=== PATIENT | male | born 1985 | race Caucasian/White ===

== ENCOUNTER 2018-04-27 11:42 | Inpatient (IN) | payer SELFPAY ==
[2018-04-27] VITALS (20 sets, daily range): BP systolic 121–146; BP diastolic 64–95; PULSE 66–90; RESP 12–24; TEMP 36.7–37.1; O2SAT 97–100; BMI 23.2
--- NOTE | 2018-04-27 11:47 | DI.RAD.S_ITS ---
PROCEDURE: XR CHEST 1V INDICATIONS: short of breath TECHNIQUE: One view of the chest was acquired. COMPARISON: None. FINDINGS: Surgical changes and devices: None. Lungs and pleura: There is a moderate to large right pneumothorax. No mediastinal shift at this time. Mediastinum: Mediastinal contours appear normal. Heart size is normal. Bones and chest wall: No suspicious bony lesions. Overlying soft tissues appear unremarkable. IMPRESSION: Moderate to large right pneumothorax. No noticeable mediastinal shift at this time. The result was discussed with Dr. Cheney in ER on 04/27/2018 at 12:22 hours. Dictated by: Obdulio Osorio M.D. on 04/27/2018 at 12:21 Approved by: Obdulio Osorio M.D. on 04/27/2018 at 12:24
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
[2018-04-27] MEDS: ALBUTEROL/IPRATROPIUM 3 ML AMPUL INH (11:59)
--- NOTE | 2018-04-27 11:59 | RT ---
Breathing tx given by
[2018-04-27 12:00] LABS: Add Manual Diff / Slide Review NO; Basophils Percent Auto 0.6 % (0-2); Hematocrit 48.7 % (41-53); Hemoglobin 16.6 g/dL (13.5-17.5); Lymphocytes Percent Auto 30.6 % (25-40); Mean Corpuscular HGB Conc 34.2 % (30-36); Mean Corpuscular Hemoglobin 30.3 PG (26-34); Mean Corpuscular Volume 88.7 fL (80-100); Monocytes Percent Auto 9.4 % (3-14); Neutrophils Absolute Auto 6800 /uL (3000-5900); Neutrophils Percent Auto 57.4 % (50-75); Platelet Count 298 X10^3/uL (150-400); Red Blood Cell Count 5.49 X10^6/uL (4.5-5.9); Red Cell Distribution Width 13.1 % (11.6-14.8); White Blood Cell Count 11.8 X10^3/uL (4.5-11.0)
--- NOTE | 2018-04-27 12:04 | PC.NURSE ---
with respiratory treatment duo neb, started by dr sierra on arrival.
[2018-04-27 12:12] LABS: BUN Creatinine Ratio 16.7 (6-22); Blood Urea Nitrogen 15 mg/dL (9-20); Calcium 9.5 mg/dL (8.4-10.2); Carbon Dioxide 24 mmol/L (22-32); Chloride 102 mmol/L (98-107); Estimated Glomerular Filt Rate > 60.0 mL/min (>60); Glucose 132 mg/dL (70-100); HEMOLYSIS < 15 (0-50); Potassium 3.8 mmol/L (3.4-5.1); Sodium 143 mmol/L (137-145)
--- NOTE | 2018-04-27 12:48 | PC.NURSE ---
awake , with slurred speech.
[2018-04-27] MEDS: PROPOFOL 200 MG/20 ML VIAL IV (12:51)
--- NOTE | 2018-04-27 12:53 | PC.NURSE ---
inserting right chest tube by dr sierra, pt talking with slurred speech, skin warm dry pink
--- NOTE | 2018-04-27 12:55 | PC.NURSE ---
with breathing assist bagging.
--- NOTE | 2018-04-27 13:06 | PC.NURSE ---
pcxr post ct placement
[2018-04-27] MEDS: HYDROMORPHONE 1 MG INJ IV ×4 (13:09→20:34)
--- NOTE | 2018-04-27 13:10 | PC.NURSE ---
dilaudid 1 mg ivps rac, for pain relief.
--- NOTE | 2018-04-27 13:13 | DI.RAD.S_ITS ---
PROCEDURE: XR CHEST 1V INDICATIONS: chest tube placement TECHNIQUE: One view of the chest was acquired. COMPARISON: [facility], CR, XR CHEST 1V, 04/27/2018, 12:03. FINDINGS: Surgical changes and devices: There is a thoracostomy tube on the right. Lungs and pleura: A small residual right apical pneumothorax is present. No pleural effusions. Lungs are clear. Mediastinum: Mediastinal contours appear normal. Heart size is normal. Bones and chest wall: No suspicious bony lesions. Overlying soft tissues appear unremarkable. IMPRESSION: 1. Placement of thoracostomy on the right. There is a small residual right apical pneumothorax. Dictated by: Obdulio Osorio M.D. on 04/27/2018 at 13:25 Approved by: Obdulio Osorio M.D. on 04/27/2018 at 13:27
[2018-04-27] MEDS: SODIUM CHLORIDE 0.9% 100 ML IV (13:49)
--- NOTE | 2018-04-27 14:01 | PC.NURSE ---
diminished right lung , reported to dr sierra, no new orders at this time
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
[2018-04-27] MEDS: SODIUM CHLORIDE 0.9% 1,000 ML 42 ML IV (15:00)
--- NOTE | 2018-04-27 15:32 | PC.NURSE ---
Patient brought up from ER to room 202, with right midaxillary chest tube in place. Patient states his breathing has improved but still in a lot of pain described as sharp 11/30. Medicated with IV dilaudid now with some relief it's taking the edge off. IV fluids infusing as ordered. Urinal and call light placed within reach. Report given to evening shift to assume care.
--- NOTE | 2018-04-27 15:38 | PC.NURSE ---
Chest tube care cart placed at doorway.
[2018-04-27] MEDS: OXYCODONE IR 5 MG TABLET PO (17:52)
[2018-04-27] MEDS: KETOROLAC 30 MG/ML VIAL IV (18:33)
--- NOTE | 2018-04-27 19:20 | PC.NURSE ---
Addendum entered by Ann Marie Sierra R.N. 04/27/18 23:00: 2040- new outline as some to left lateral aspect and top aspect of already drained. new outline to incorporate new drainage. marked with dotted ink line. no dressing change needed at this time. Original Note: Addendum entered by Ann Marie Sierra R.N. 04/27/18 21:17: snacks placed in fridge with pt sticker and date/time on. grapes, celery, cheeses. Original Note: 1500- assumed care of pt form outgoing shift. pt awake and alert, mother at bedside, pt has chest tube, to water seal and low continuous suction. pt tolerates ok. pt has bright red blood drainage circled with dotted line and timed, md called and stated to leave dressing as is now, if it become saturated then to change. pt updated with plans of care, ate entire dinner. drinking fluids fine. oxygen saturation stable. pt complains of pain and given prn pain meds. 1700- pt wanted to try po pain meds, hlaf hour/hour later pt was experiencing more pain. breath sounds same as earlier, diminished. pt repositioned and given other prn torodol. discussed that maybe we should stick with the diluadid for pain control, at least for the first day with chest tube. dressing reinforced with silk tape. pt and mother compliant and agreed. discussed with pt his med options and use of toileting. chest tube on ground tubing secured. pt compliant and cooperative. will continue to monitor.
[2018-04-27] MEDS: DOCUSATE 100 MG CAPSULE PO (20:37)
[2018-04-28] VITALS (7 sets, daily range): BP systolic 117–135; BP diastolic 64–78; PULSE 60–73; RESP 16–18; TEMP 36.4–37.4; O2SAT 94–100
[2018-04-28] MEDS: HYDROMORPHONE 1 MG INJ IV ×3 (00:30→19:26)
[2018-04-28] MEDS: KETOROLAC 30 MG/ML VIAL IV ×2 (00:31→09:40)
[2018-04-28] MEDS: ONDANSETRON 4 MG/2 ML INJ IV ×2 (00:31→05:26)
--- NOTE | 2018-04-28 00:57 | PC.NURSE ---
Driveway Attendant Note: 0030: Awake, resting in bed. Vital signs stable. Rt Chest tube intact and secure; dressing is 2/3 saturated with serosanguinous drainage. IV in place in rt AC with NS infusing at 42cc/hr. Pt having 7/10 pain at chest tube site: medicated with Dilaudid 1mg IV and Toradol 30mg IV.
[2018-04-28] MEDS: PANTOPRAZOLE 20 MG TABLET PO (05:26)
--- NOTE | 2018-04-28 08:00 | DI.RAD.S_ITS ---
PROCEDURE: XR CHEST 1V INDICATIONS: pneumothorax TECHNIQUE: One view of the chest was acquired. COMPARISON: [facility], CR, XR CHEST 1V, 04/27/2018, 12:03. [facility], CR, XR CHEST 1V, 04/27/2018, 13:05. FINDINGS: Surgical changes and devices: There is a chest tube on the right side. Lungs and pleura: Small residual right apical pneumothorax appears unchanged. Lungs are clear. No pleural effusions. Mediastinum: Mediastinal contours appear normal. Heart size is normal. Bones and chest wall: No suspicious bony lesions. Overlying soft tissues appear unremarkable. IMPRESSION: Stable small residual right apical pneumothorax. Dictated by: Obdulio Osorio M.D. on 04/28/2018 at 8:12 Approved by: Obdulio Osorio M.D. on 04/28/2018 at 8:14
--- NOTE | 2018-04-28 09:11 | PM.PN.1 ---
Subjective Date Patient Seen: 04/28/18 Time Patient Seen: 09:12 Interval history: Patient complaining of pain at the chest tube site but this is well controlled with his current regimen. Tolerating a regular diet without difficulty. No nausea vomiting. No subjective shortness of breath, fever, or chills. Urinating without difficulty. Exam Vital Signs (past 8 hours): - 04/28/18 05:15 Temperature 97.9 F Pulse Rate 73 Respiratory Rate 18 Blood Pressure 129/74 Pulse Oximetry 98 Oxygen Delivery Method Room Air Oxygen Flow Rate 0 Narrative Exam Narrative: Well-nourished well-developed male in no acute distress resting comfortably in bed. Alert oriented x3 Chest is clear to auscultation bilaterally with good breath sounds throughout. He is not splinting currently. No air leak and the chest tube. Chest tube output has been essentially 0. Abdomen soft, nondistended, nontender. Extremities show no clubbing, cyanosis, or edema Objective Labs Result Diagrams: 04/27/18 11:50 04/27/18 11:50 Labs: Laboratory Results - last 24 hr 04/27/18 04/27/18 11:50 11:50 WBC 11.8 H RBC 5.49 Hgb 16.6 Hct 48.7 MCV 88.7 MCH 30.3 MCHC 34.2 RDW 13.1 Plt Count 298 Neut % (Auto) 57.4 Lymph % (Auto) 30.6 [place] % (Auto) 9.4 Eos % (Auto) 2.0 Baso % (Auto) 0.6 Neut # (Auto) 6800 H Sodium 143 Potassium 3.8 Chloride 102 Carbon Dioxide 24 BUN 15 Creatinine 0.90 Estimated GFR > 60.0 BUN/Creatinine Ratio 16.7 Glucose 132 H Calcium 9.5 Chest x-ray today shows a residual small rim pneumothorax which is not significantly different from the postprocedure film yesterday. No effusion. No infiltrates. Assessment & Plan Plan: Assessment/Plan Narrative: 32-year-old male status post right tube thoracostomy less than 24 hr ago for spontaneous right pneumothorax who is otherwise stable. He does not quite have complete resolution of the pneumothorax at this time. Even though there is no air leak I will continue the chest tube to suction with the hope that the lung will fully reexpand in the next 12-24 hours. If he is doing well clinically this afternoon and has no air leak on repeat examination then I will water seal the tube and repeat chest x-ray tomorrow. If the lung is re-expanded on water seal tomorrow then the tube could be potentially removed at that time. I discussed this with him in detail. All questions were answered to his satisfaction, and he voiced understanding. Orders were written.
--- NOTE | 2018-04-28 09:22 | CM.DANOTE ---
Discharge Planning/Care Management DCP: assessment: case received, EMR reviewed and met with pt and his mother Schuyler. Introduced self and role. Pt is a 32 year old male who admitted to care of [facility]: Dr. Flores: R spontaneous pneumothorax with chest tube placement. PCP: not identified at this time Payer: no insurance. [facility] will see for insurance options today. Schuyler is helping pt fill out the [facility] application. Pt does work but his company does not offer insurance. P: likely home when stable for same Dr. Flores anticipates several days of inpt care. CM Discharge Assessment Start: 04/28/18 09:04 Freq: Status: Active Protocol: Document 04/28/18 09:04 ITV (Rec: 04/28/18 09:22 ITV [id number]) Discharge Planning Assessment Advance Directives? No History Provided By Patient Family Member Medical Record Has Patient been admitted in last 30 No days? Prior Living Arrangements House Household Members family Comment lives with mother, Schuyler Howell/works at in charge of Med Staff Services at bedside during this visit Type of transporation used prior to Drives own vehicle admit Independent with ADL's Yes Is patient alert and oriented? Yes Whiteboard Updated in Patient Room with Yes name and ext. # of Paper Latcher Review Status In Process Next Review Type Continued Stay Review
[2018-04-28] MEDS: OXYCODONE IR 5 MG TABLET PO ×2 (14:20→22:07)
--- NOTE | 2018-04-28 22:14 | PC.NURSE ---
2200- Early this shift at around 1630 patient stated he was feeling more SOB and increased pain to the right chest. This was just after ambulation. Patient assisted back to bed. Lungs anterior were dim at the mid lobe right clear on the left. Right lung sounds laterally just under the axilla were absent. A very slight amount of crepitus was noted at the clavical neck junction. Patient saturation was unchanged but he did appear to be working harder. Dr. Amaya was notified and orders recieved. Patient has remained stable the rest of this shift.
--- NOTE | 2018-04-28 22:22 | PC.NURSE ---
1929- Patient medicated for pain 12/31 with dilaudid IV. Patient encouraged to take medication earlier so that he can continue to take deep breathes. Will monitor
--- NOTE | 2018-04-29 | DI.RAD.S_ITS ---
PROCEDURE: XR CHEST 2V INDICATIONS: f/u after removal of chest tube TECHNIQUE: 2 views of the chest were acquired. COMPARISON: [facility], CR, XR CHEST 1V, 04/27/2018, 13:05. [facility], CR, XR CHEST 1V, 04/27/2018, 12:03. [facility], CR, XR CHEST 1V, 04/28/2018, 5:17. [facility], CR, XR CHEST 1V, 04/29/2018, 5:39. FINDINGS: Surgical changes and devices: The previously seen right-sided chest tube has been removed. Lungs and pleura: No definite pneumothorax can be seen. No focal infiltrates are seen. Low lung volumes are noted. This causes a crowded appearance to the lung markings and limits evaluation. Mediastinum: Mediastinal contours are normal. Heart size is normal. Bones and chest wall: No suspicious bony abnormalities. Soft tissues appear unremarkable. IMPRESSION: Removal of a right-sided chest tube, without a pneumothorax seen. Dictated by: Kevin Rehman M.D. on 04/29/2018 at 8:14 Approved by: Kevin Rehman M.D. on 04/29/2018 at 8:16
--- NOTE | 2018-04-29 | DI.RAD.S_ITS ---
PROCEDURE: XR CHEST 1V INDICATIONS: pneumothorax TECHNIQUE: One view of the chest was acquired. COMPARISON: [facility], , XR CHEST 1V, 04/28/2018, 5:17. FINDINGS: Surgical changes and devices: Right-sided chest tube is present with distal tip projecting over the medial mid lobe. Lungs and pleura: There is a persistent appearance of trace right pneumothorax, questionably minimally decreased compared to prior exam. Mediastinum: Mediastinal contours appear normal. Heart size is normal. Bones and chest wall: No suspicious bony lesions. Overlying soft tissues appear unremarkable. IMPRESSION: Right chest tube with trace persistent right apical pneumothorax, partially minimally decreased compared to prior exam. Dictated by: Mariana Tucker M.D. on 04/29/2018 at 8:47 Approved by: Mariana Tucker M.D. on 04/29/2018 at 8:49
[2018-04-29] MEDS: KETOROLAC 30 MG/ML VIAL IV (00:04)
[2018-04-29 00:05] VITALS: BP 123/79; PULSE 62; RESP 18; TEMP 36.7; O2SAT 99
[2018-04-29] MEDS: ONDANSETRON 4 MG/2 ML INJ IV (00:07)
[2018-04-29 00:36] VITALS: O2SAT 99
[2018-04-29 04:52] VITALS: BP 128/71; PULSE 58; RESP 18; TEMP 36.5; O2SAT 99
--- NOTE | 2018-04-29 05:00 | PC.NURSE ---
Pt is A and O x 4, 6/[address] site. Connor relief with 1 mg Dilaudid IVP. LS course on R side and diminished, clear on L. Dressing drainage is marked and has not increased, is sanguineous. LS clear, S1, S2 and voiding qs clear yellow. Pt affirms he is not going to smoke tobacco any more.
[2018-04-29] MEDS: PANTOPRAZOLE 20 MG TABLET PO (05:53)
[2018-04-29 08:45] VITALS: O2SAT 98
[2018-04-29] MEDS: HYDROMORPHONE 1 MG INJ IV ×2 (08:49)
[2018-04-29 08:52] VITALS: BP 133/90; PULSE 66; RESP 16; TEMP 37.1; O2SAT 99
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
--- NOTE | 2018-04-29 10:49 | P.DS_ITS ---
History of Present Illness Date Patient Seen: 04/29/18 Time Patient Seen: 08:02 Chief complaint: trouble breathing Narrative: Patient is a gentleman brought in after placement of a chest tube in the emergency room for treatment of a spontaneous pneumothorax. Discharge Providers Date of admission: 04/27/18 13:50 Consults: 04/27/18 14:53 Consult to Respiratory Therapy Evaluate & Treat Comment: Physician Instructions: Evaluate and treat Discharge provider: Luis M Amaya MD Discharge Date: 04/29/18 Summary Discharge Diagnosis: Spontaneous pneumothorax acute Hospital Course: Patient had a chest tube placed the emergency room. His lung re -expanded immediately except for small pneumothorax. This resolved over time. His air leak sealed and he had good fluctuation in the tube. His chest tube was removed and post removal chest x-ray showed the lung re-expanded and normal in appearance. Status at Discharge Cognitive/behavioral status at discharge: Normal Functional status at discharge: independent ambulation Overall status at discharge: patient is back to baseline Time Spent with Patient Greater than 30 minutes Exam Vital Signs (past 8 hours): - 04/29/18 04:52 04/29/18 08:45 04/29/18 08:52 Temperature 97.7 F 98.7 F Pulse Rate 58 L 66 Respiratory Rate 18 16 Blood Pressure 128/71 133/90 Pulse Oximetry 99 98 99 Oxygen Delivery Method Room Air Oxygen Flow Rate 0 Narrative Exam Narrative: Chest tube site looked fine. The tube was removed. Two stitches remain. There to be removed in a week when he follows up in the office. Good lung effort. Objective Labs Result Diagrams: 04/27/18 11:50 04/27/18 11:50 Discharge Plan Discharge Plan Patient Disposition: Home Discharge Med Rec/Prescriptions Prescriptions: Continue bacitracin 500 units ointment 1 applic Topical DAILY RF: 0 Follow up/Referrals: Luis M Amaya MD [Physician] - 05/06/18 4:00 pm Provider Discharge Instructions Diet: Diet as Tolerated Activity: Avoid flying for 6 weeks. Avoid [place] 6 weeks. Skin/Wound/Dressing Care Report to your healthcare provider any signs of infection, such as:: increased pain, unusual drainage and unusual redness Dressing: You may remove the dressing on her chest in 2 days and shower. Then keep a Band-Aid over the incision till it stops draining. Discharge Data Attending Provider: Janes Flores Admit Date/Time: 04/27/18 13:50
--- NOTE | 2018-04-29 14:33 | CM.DPC ---
DCP: continued: Dr. Amaya saw pt today and ok'd him for home. Pt and his mother left for home after both went over d/c instructions with [facility] [place].
== END 2018-04-29 12:26 | disposition home or self-care (01) | DRG 201 ==
LOC: ED 13:49 → AC 13:50
PROVIDERS: Admitting Provider Surgery; Emergency Provider Emergency Medicine; Visit Provider Surgery
DX: J93.11 Primary spontaneous pneumothorax (principal); F17.210 Nicotine dependence, cigarettes, uncomplicated
CPT/HCPCS: 32551; 36591; 71045; 71046; 80048; 85025; 93005; 93010; 94770; 96374; 96376; 99152; 99222; 99232; 99238; 99285; 99291; 99292; 99406; J1170; J1885; J2405; J2704